=== PATIENT | female | born 1960 | race Caucasian/White ===

== ENCOUNTER 2017-06-12 08:34 | Outpatient (CLI) | payer OTHER | END 2017-06-12 21:52 | disposition home or self-care (01) | LOC: SMA 08:34 | PROVIDERS: ATTEND Physician Assistant Medical | DX: Z12.31 Encounter for screening mammogram for malignant neoplasm of breast (principal) | CPT/HCPCS: 77067 ==

== ENCOUNTER 2018-07-14 08:44 | Outpatient (CLI) | payer BC | END 2018-07-15 21:20 | disposition home or self-care (01) | LOC: SMA 08:44 | PROVIDERS: ATTEND Physician Assistant Medical | DX: Z12.31 Encounter for screening mammogram for malignant neoplasm of breast (principal) | CPT/HCPCS: 77067 ==

== ENCOUNTER 2018-11-10 04:37 | Emergency (ER) | payer BC ==
[~2018-11-10] VITALS: Ht 162.6 cm; Wt 76.7 kg
[2018-11-10 04:50] VITALS: BP_SYST 148
--- NOTE | 2018-11-10 04:50 | NUR ---
Oliver muse in [facility] - 11/10/18 at 0505 by [email or web address] Pt ambulatory to bed 8 for evaluation
--- NOTE | 2018-11-10 05:00 | NUR ---
Patient to ER bed 08 for evaluation. Side rails up.
--- NOTE | 2018-11-10 05:05 | NUR ---
Pt AAOx4 ambulated into ED c/o 01/01 R flank pain and nausea x 2 days, took motrin with no relief. Denies dysuria. No other injuries/complaints per pt/noted. Will continue to monitor.
[2018-11-10 05:21] LABS: BILIRUBIN,URINE NEGATIVE (NEGATIVE); BLOOD, URINE 1+ (NEGATIVE); CLARITY/URINE CLEAR (CLEAR); COLOR,URINE YELLOW (YELLOW); GLUCOSE,URINE NEGATIVE (NEGATIVE); KETONES,URINE NEGATIVE (NEGATIVE); LEUKOCYTE ESTERASE ,URINE TRACE (NEGATIVE); NITRITE, URINE NEGATIVE (NEGATIVE); PROTEIN URINE NEGATIVE (NEGATIVE); UROBILINOGEN,URINE 0.2 (0.2-1.0)
--- NOTE | 2018-11-10 05:30 | NUR ---
ER Dr. Barksdale at bedside examining patient.
[2018-11-10 05:31] LABS: BACTERIA,URINE FEW /HPF (None Seen)
[2018-11-10] MEDS ORDERED: KETOROLAC TROMETHAMINE 60 MG/2 ML VIAL IM ONE (05:45)
[2018-11-10] MEDS ORDERED: ONDANSETRON HCL 4 MG/2 ML VIAL IVP ONE (05:45)
[2018-11-10] MEDS ORDERED: NACL 0.9% 1,000 ML IV ONE (05:45)
--- NOTE | 2018-11-10 06:16 | NUR ---
Medication administered. Pt tolerated well. No adverse reactions noted.
[2018-11-10 06:33] LABS: BASOPHILS % (AUTO) 0.1 % (0.0-2.0); EOSINOPHILS # (AUTO) 0.1 K/uL (0.0-0.4); EOSINOPHILS % (AUTO) 0.8 % (0.0-4.0); HEMATOCRIT 39.3 % (36-48); HEMOGLOBIN 13.4 g/dL (12.0-16.0); LYMPHOCYTES # (AUTO) 1.4 K/uL (1.0-5.5); LYMPHOCYTES % (AUTO) 21.3 % (20.5-51.5); MEAN CORPUSCULAR HEMOGLOBIN 31 pg (27-31); MEAN CORPUSCULAR HGB CONC 34 % (32-36); MEAN CORPUSCULAR VOLUME 91 fL (79.0-98.0); MONOCYTES # (AUTO) 0.2 K/uL (0.0-1.0); MONOCYTES % (AUTO) 3.6 % (1.7-9.3); NEUTROPHILS % (AUTO) 74.2 % (40.0-70.0); PLATELET COUNT (AUTO) 215 K/uL (130-430); RED BLOOD CELL COUNT(AUTO) 4.34 MIL/uL (4.2-6.2); RED CELL DISTRIBUTION WIDTH 12.7 % (9.0-15.0); WHITE BLOOD COUNT (AUTO) 6.8 K/uL (4.8-10.8)
--- NOTE | 2018-11-10 06:41 | NUR ---
Pt ambulated to bathroom in non slip shoes with steady gait.
[2018-11-10 06:42] LABS: CALCIUM 9.2 mg/dL (8.4-11.0); CREATININE 0.86 mg/dL (0.55-1.30); POTASSIUM 3.8 mmol/L (3.5-5.1)
[2018-11-10 06:47] LABS: ALBUMIN 3.8 g/dL (3.4-4.8); TOTAL BILIRUBIN 0.4 mg/dL (0.0-1.0)
--- NOTE | 2018-11-10 06:48 | NUR ---
Patient given written and verbal discharge instructions and verbalizes understanding. ER MD Barksdale discussed with patient the results and treatment provided. Patient in stable condition. ID arm band removed. IV catheter removed intact and dressing applied, no active bleeding. Rx of Tramadol, Macrobid given. Patient educated on pain management and to follow up with PMD. Pain Scale 3. Opportunity for questions provided and answered. Medication side effect fact sheet provided.
[2018-11-10 06:49] VITALS: BP_SYST 137
== END 2018-11-10 06:49 | disposition home or self-care (01) ==
LOC: SED 04:37
DX: N39.0 Urinary tract infection, site not specified (principal); R10.9 Unspecified abdominal pain
CPT/HCPCS: 36415; 74176; 80053; 81000; 85025; 87086; 96372; 96374; 99284; J1885; J2405; J7030

== ENCOUNTER 2021-03-02 09:19 | Outpatient (CLI) | payer OTHER | END 2021-03-02 20:37 | disposition home or self-care (01) | LOC: SMA 09:19 | PROVIDERS: ATTEND Family Medicine | DX: Z12.31 Encounter for screening mammogram for malignant neoplasm of breast (principal) | CPT/HCPCS: 77067 ==